=== PATIENT | female | born 1955 | race Caucasian/White ===

== ENCOUNTER 2020-05-10 06:25 | Day surgery (SDC) | payer MEDICARE, OTHER ==
[~2020-05-10] VITALS: Ht 152.4 cm; Wt 69.2 kg
[2020-05-10] VITALS (9 sets, daily range): BP systolic 109–144; BP diastolic 57–74; PULSE 50–62; TEMP 98
[2020-05-10] MEDS ORDERED: TENORETIC 100 11 TAB PO (06:53)
[2020-05-10 06:54] LABS: HEMATOCRIT 41.4 % (37.0-47.0); HEMOGLOBIN 13.8 g/dl (12.5-16.0); MEAN CELL VOLUME 89 fl (80.0-100.0); MEAN CORPUSCULAR HEMOGLOBIN 30 pg (27.0-31.0); MEAN CORPUSCULAR HGB CONC 33 g/dl (33.0-37.0); MEAN PLATELET VOLUME 9.4 fl (7.4-10.4); PLATELET COUNT 233 K/mm3 (130-400); RED BLOOD COUNT 4.66 M/mm3 (4.10-5.30); REDCELL DISTRIBUTION WIDTH-CV 13.2 % (11.5-14.5)
[2020-05-10] MEDS ORDERED: K-DUR20 MEQ PO (06:54)
[2020-05-10] MEDS ORDERED: SYNTHROID0.05 MG/TA PO (06:54)
[2020-05-10] MEDS ORDERED: ASPIRIN E.C. 8181 MG PO (06:55)
[2020-05-10] MEDS ORDERED: CINNAMON500 MG PO (06:56)
[2020-05-10] MEDS ORDERED: CALCIUM-MAGNES1 EAC1 PO (06:56)
[2020-05-10] MEDS ORDERED: NITROSTAT0.4 MG/TAB SL (06:57)
[2020-05-10] MEDS ORDERED: ADVIL200 MG PO (06:57)
[2020-05-10] MEDS ORDERED: VITAMIN FLUSH-F1 CAP PO (06:58)
[2020-05-10] MEDS ORDERED: SELENIUM200 MC5 PO (06:58)
[2020-05-10 06:59] LABS: PROTHROMBIN TIME 11.3 SECONDS (9.7-12.8)
[2020-05-10] MEDS ORDERED: VITAMIN B12 1541 TAB PO (06:59)
[2020-05-10] MEDS ORDERED: VITAMIN B-6100 MG PO (07:00)
[2020-05-10] MEDS ORDERED: VITAMINC1000TA PO (07:00)
[2020-05-10] MEDS ORDERED: VITAMIN B COMPL1 SGL PO (07:01)
[2020-05-10] MEDS ORDERED: VITAMIN D31000 I1 PO (07:01)
[2020-05-10 07:25] LABS: CREATININE, serum 0.6 (0.52-1.25); POTASSIUM 3.1 mmol/L (3.4-5.0)
--- NOTE | 2020-05-10 08:46 | NUR ---
SEE MERGE DOCUMENTATION FOR MEDICATION ADMINISTRATION TIMES AND INTRA/POST PROCEDURE SEDATION ASSESSMENTS. RIGHT HAND BARBEAU TEST POSITIVE.
--- NOTE | 2020-05-10 09:30 | NUR ---
Report from Wesley MEADE . Transferred by bed from [employer]. Alert and oriented, denies pain and needs at this time. Right Tband with 15 cc in band CD&I, good pulses and cap refill < 3 secs. Friend bedside. VSS
[2020-05-10] MEDS ORDERED: TENORMIN100 MG PO (10:39)
[2020-05-10] MEDS ORDERED: FISH OIL 1000MG1 CAP PO (10:41)
[2020-05-10] MEDS ORDERED: ALDACTONE 25MG25 M1 PO (10:41)
[2020-05-10] MEDS ORDERED: LIPITOR20 MG PO (10:41)
--- NOTE | 2020-05-10 11:45 | NUR ---
INT discontinued intact. Right Tband deflated of 15 cc air and pressure dressing applied. Discharge instructions given.
--- NOTE | 2020-05-10 11:57 | NUR ---
Transferred to private car by ludy
== END 2020-05-10 11:57 | disposition home or self-care (01) ==
LOC: COL.CAR 06:25
PROVIDERS: Internal Medicine Cardiovascular Disease
DX: I25.10 Atherosclerotic heart disease of native coronary artery without angina pectoris (principal); I10 Essential (primary) hypertension; E07.9 Disorder of thyroid, unspecified; E87.6 Hypokalemia; E78.5 Hyperlipidemia, unspecified; Z87.891 Personal history of nicotine dependence; Z20.828 Contact with and (suspected) exposure to other viral communicable diseases; Z88.8 Allergy status to other drugs, medicaments and biological substances; Z79.899 Other long term (current) drug therapy; Z79.82 Long term (current) use of aspirin
CPT/HCPCS: C1769; J1644; J2250; J3010; J3480; Q9967